=== PATIENT | female | born 1995 ===

== ENCOUNTER → 2018-01-01 | Outpatient (CLI) | payer OTHER ==
[~2018-01-01] MED LIST: ACET500 PO; Augmentin 875-1 EACH PO; BIRTHCONTROL; CITA20 PO; CYCL10 PO; Crutch1 EACH MISC; DIPH50 PO; DOCU100 PO; DOXY100 PO; FAMO20 PO; HYDACE5 PO; IBUP400 PO; IBUP600 PO; IBUP800 PO; LABE100 PO; LIDO2L MM; MECL12.5 PO; MECL25 PO; MULVITMINE PO; Naprosyn500 MG PO; Norco 5-325 Ta1 EACH PO; ONDA4 PO; POTA20PAC PO; Percocet 5-3251 EACH PO; RANI150 PO; RXOXYACE PO; RXSULTRIDS PO; SULTRIDS PO; Ultram50 MG PO; Verotin-Gr Cap1 EACH PO
[2018-01-02 14:37] LABS: Source VAG/CERVIX
== END | disposition home or self-care (01) ==
LOC: LAB 11:36
PROVIDERS: Obstetrics & Gynecology
DX: Z33.1 Pregnant state, incidental (principal)
CPT/HCPCS: G0123

== ENCOUNTER 2018-01-08 15:09 | Inpatient (IN) | payer OTHER ==
[~2018-01-08] VITALS: Ht 167.6 cm; Wt 72.5 kg
[~2018-01-08 15:09] MED LIST changes: -DOCU100 PO; -LABE100 PO; -Percocet 5-3251 EACH PO; -RANI150 PO; -Verotin-Gr Cap1 EACH PO
[2018-02-05] MEDS ORDERED: Verotin-Gr Cap1 EACH PO (05:49)
[2018-02-05] MEDS ORDERED: RANI150 PO (05:49)
[2018-02-05 07:05] LABS: BASOPHILS ABSOLUTE AUTO 0.03 K/mm3 (0.00-0.23); BASOPHILS PERCENT AUTO 0 % (0-2); EOSINOPHILS ABSOLUTE AUTO 0.03 K/mm3 (0.00-0.68); EOSINOPHILS PERCENT AUTO 0 % (0-6); Hematocrit 37.6 % (33.0-51.0); Hemoglobin 12.2 g/dL (11.5-16.0); IMMATURE GRAN ABSOLUTE AUTO 0.09 K/mm3 (0.00-0.10); IMMATURE GRAN PERCENT AUTO 1 % (0-1); LYMPHOCYTES ABSOLUTE AUTO 2.42 K/mm3 (0.84-5.20); LYMPHOCYTES PERCENT AUTO 20 % (21-46); MONOCYTES ABSOLUTE AUTO 0.66 K/mm3 (0.16-1.47); MONOCYTES PERCENT AUTO 5 % (4-13); Mean Corpuscular HGB 26.4 pg (26.0-34.0); Mean Corpuscular HGB Conc 32.4 g/dL (31.5-36.5); Mean Corpuscular Volume 81 fL (80-100); Mean Platelet Volume 11.3 fL (9.1-12.4); NEUTROPHILS PERCENT AUTO 74 % (41-73); Platelet Count 255 K/mm3 (150-400); RDW Coefficient Variation 12.9 % (11.7-14.2); RDW Standard Deviation 38.4 fL (35.1-46.3); Red Blood Cell Count 4.62 M/mm3 (3.80-5.20); White Blood Cell Count 12.43 K/mm3 (4.00-11.30)
[2018-02-05 12:21] LABS: U Amphetamine Screen DETECTED; U Barbituate Screen Not Detected; U Benzodiazapine Screen Not Detected; U Buprenorphine Screen Not Detected; U Cannabinoids Screen Not Detected; U Cocaine Screen Not Detected; U Methadone Screen Not Detected; U Methamphetamine Screen DETECTED; U Opiates Screen Not Detected; U Oxycodone Screen Not Detected; U Phencyclidine Screen Not Detected; U Propoxyphene Screen Not Detected
[2018-02-06 05:26] LABS: Hematocrit 33.3 % (33.0-51.0); Hemoglobin 10.6 g/dL (11.5-16.0); Mean Corpuscular HGB 26.4 pg (26.0-34.0); Mean Corpuscular HGB Conc 31.8 g/dL (31.5-36.5); Mean Corpuscular Volume 83 fL (80-100); Mean Platelet Volume 10.2 fL (9.1-12.4); Platelet Count 164 K/mm3 (150-400); RDW Coefficient Variation 12.8 % (11.7-14.2); RDW Standard Deviation 39.1 fL (35.1-46.3); Red Blood Cell Count 4.01 M/mm3 (3.80-5.20); White Blood Cell Count 12.52 K/mm3 (4.00-11.30)
[2018-02-08] MEDS ORDERED: Percocet 5-3251 EACH PO (10:34)
[2018-02-08] MEDS ORDERED: DOCU100 PO (10:35)
[2018-02-10 13:24] LABS: MDA SEE SEPARATE REPORT; MDEA SEE SEPARATE REPORT; MDMA SEE SEPARATE REPORT
== END 2018-02-08 11:20 | disposition home or self-care (01) | DRG 766 ==
LOC: BC 02-05 05:46 → PRE IP 02-10 07:30 → BC 02-10 07:30
PROVIDERS: Obstetrics & Gynecology
PROC: 3E0234Z Introduction of Serum, Toxoid and Vaccine into Muscle, Percutaneous Approach (ICD-10-PCS; 2018-02-05)
PROC: 10D00Z1 Extraction of Products of Conception, Low, Open Approach (ICD-10-PCS; principal; 2018-02-05 07:30)
DX: O13.4 Gestational [pregnancy-induced] hypertension without significant proteinuria, complicating childbirth (principal); F17.200 Nicotine dependence, unspecified, uncomplicated; O34.211 Maternal care for low transverse scar from previous cesarean delivery; O99.334 Smoking (tobacco) complicating childbirth; O75.89 Other specified complications of labor and delivery; R07.81 Pleurodynia; Z23 Encounter for immunization; Z3A.38 38 weeks gestation of pregnancy; Z37.0 Single live birth; Z88.8 Allergy status to other drugs, medicaments and biological substances; Z88.5 Allergy status to narcotic agent; Z91.018 Allergy to other foods; Z88.0 Allergy status to penicillin; Z91.013 Allergy to seafood
CPT/HCPCS: 36415; 59025; 71046; 80053; 81003; 84550; 85025; 85027; 86850; 86900; 86901; 90471; 90707; 99212; G0480; J1885; J2590; J2765; J3010; J7120; Q2038; Q3014

== ENCOUNTER → 2018-01-22 | Outpatient (CLI) | payer OTHER ==
[~2018-01-22] MED LIST changes: +DOCU100 PO; +LABE100 PO; +Percocet 5-3251 EACH PO; +RANI150 PO; +Verotin-Gr Cap1 EACH PO
== END | disposition home or self-care (01) ==
LOC: LAB 16:44
DX: Z34.90 Encounter for supervision of normal pregnancy, unspecified, unspecified trimester (principal)
CPT/HCPCS: 87081; 87653

== ENCOUNTER 2018-02-11 10:54 | Inpatient (IN) | payer OTHER ==
[~2018-02-11 10:54] MED LIST changes: -LABE100 PO
[2018-02-11] MEDS ORDERED: IBUP800 PO (13:57)
[2018-02-12] MEDS ORDERED: LABE100 PO (08:20)
== END 2018-02-12 08:57 | disposition home or self-care (01) | DRG 776 ==
LOC: OBS 10:54 → BC 12:33
DX: O13.5 Gestational [pregnancy-induced] hypertension without significant proteinuria, complicating the puerperium (principal); Z79.899 Other long term (current) drug therapy; Z88.0 Allergy status to penicillin; Z88.8 Allergy status to other drugs, medicaments and biological substances; Z88.5 Allergy status to narcotic agent; Z91.018 Allergy to other foods; Z91.013 Allergy to seafood

== ENCOUNTER 2019-07-09 15:24 | Emergency (ER) | payer OTHER ==
[~2019-07-09] VITALS: Ht 167.6 cm; Wt 59.0 kg
[~2019-07-09 15:24] MED LIST changes: +LABE100 PO
[2019-07-09] MEDS ORDERED: Depo-Prove400 MG/1 M IM (15:40)
[2019-07-09] MEDS ORDERED: CEPH500 PO (16:28)
[2019-07-09] MEDS ORDERED: Mupirocin22 GM TOP (16:28)
== END 2019-07-09 16:42 | disposition home or self-care (01) ==
LOC: ER 15:24
DX: L03.116 Cellulitis of left lower limb (principal); F17.210 Nicotine dependence, cigarettes, uncomplicated; Z88.0 Allergy status to penicillin; Z91.013 Allergy to seafood; Z88.5 Allergy status to narcotic agent; Z88.8 Allergy status to other drugs, medicaments and biological substances
CPT/HCPCS: 99282

== ENCOUNTER 2021-05-18 21:08 | Emergency (ER) | payer OTHER ==
[~2021-05-18] VITALS: Ht 167.6 cm; Wt 75.8 kg
[~2021-05-18 21:08] MED LIST changes: +CEPH500 PO; +Depo-Prove400 MG/1 M IM; +Mupirocin22 GM TOP
[2021-05-18] MEDS ORDERED: Cleocin HCl300 MG PO (22:11)
== END 2021-05-18 22:23 | disposition home or self-care (01) ==
LOC: ER 21:08
DX: K04.7 Periapical abscess without sinus (principal); K02.9 Dental caries, unspecified; F17.210 Nicotine dependence, cigarettes, uncomplicated; Z88.5 Allergy status to narcotic agent; Z88.0 Allergy status to penicillin; Z91.013 Allergy to seafood
CPT/HCPCS: 99282

== ENCOUNTER 2022-05-05 21:09 | Emergency (ER) | payer OTHER ==
[~2022-05-05] VITALS: Ht 167.6 cm; Wt 73.9 kg
[~2022-05-05 21:09] MED LIST changes: +Cleocin HCl300 MG PO
[2022-05-05] MEDS ORDERED: DOXY100 PO (23:45)
== END 2022-05-05 23:45 | disposition home or self-care (01) ==
LOC: ER 21:09
DX: S06.0X0A Concussion without loss of consciousness, initial encounter (principal); W22.8XXA Striking against or struck by other objects, initial encounter; J32.9 Chronic sinusitis, unspecified; S01.81XA Laceration without foreign body of other part of head, initial encounter; I10 Essential (primary) hypertension; F17.210 Nicotine dependence, cigarettes, uncomplicated; Z88.1 Allergy status to other antibiotic agents; Z88.5 Allergy status to narcotic agent; Z91.018 Allergy to other foods; Z88.0 Allergy status to penicillin; Z91.013 Allergy to seafood; Z79.899 Other long term (current) drug therapy
CPT/HCPCS: 70450; J1885

== ENCOUNTER 2025-03-23 12:52 | Emergency (ER) | payer OTHER ==
[~2025-03-23] VITALS: Ht 167.6 cm; Wt 65.8 kg
[2025-03-23 13:11] VITALS: BP 138/96
== END 2025-03-23 14:43 | disposition home or self-care (01) ==
LOC: ER 12:52
DX: S83.91XA Sprain of unspecified site of right knee, initial encounter (principal); V29.99XA Rider (driver) (passenger) of other motorcycle injured in unspecified traffic accident, initial encounter; F17.210 Nicotine dependence, cigarettes, uncomplicated; Z88.1 Allergy status to other antibiotic agents; Z88.5 Allergy status to narcotic agent; Z91.013 Allergy to seafood; Z91.018 Allergy to other foods; Z79.899 Other long term (current) drug therapy
CPT/HCPCS: 73562-RT; 99283-25